=== PATIENT | female | born 1985 | race Caucasian/White ===

== ENCOUNTER 2023-05-22 14:00 | Emergency (ER) | payer OTHER ==
[~2023-05-22] VITALS: Ht 162.6 cm; Wt 104.3 kg
[2023-05-22 17:21] LABS: BASOPHILS ABSOLUTE AUTO 0.04 K/mm3 (0.00-0.23); BASOPHILS PERCENT AUTO 0 % (0-2); EOSINOPHILS PERCENT AUTO 2 % (0-6); Hematocrit 42.2 % (33.0-51.0); Hemoglobin 14.1 g/dL (11.5-16.0); IMMATURE GRAN ABSOLUTE AUTO 0.04 K/mm3 (0.00-0.10); IMMATURE GRAN PERCENT AUTO 0 % (0-1); LYMPHOCYTES ABSOLUTE AUTO 2.23 K/mm3 (0.84-5.20); LYMPHOCYTES PERCENT AUTO 21 % (21-46); MONOCYTES ABSOLUTE AUTO 0.68 K/mm3 (0.16-1.47); MONOCYTES PERCENT AUTO 6 % (4-13); Mean Corpuscular HGB 26.6 pg (26.0-34.0); Mean Corpuscular HGB Conc 33.4 g/dL (31.5-36.5); Mean Corpuscular Volume 80 fL (80-100); Mean Platelet Volume 9.4 fL (9.1-12.4); NEUTROPHILS ABSOLUTE AUTO 7.64 K/mm3 (1.96-9.15); NEUTROPHILS PERCENT AUTO 71 % (41-73); Platelet Count 255 K/mm3 (150-400); RDW Coefficient Variation 13.7 % (11.7-14.2); RDW Standard Deviation 39.7 fL (35.1-46.3); Red Blood Cell Count 5.31 M/mm3 (3.80-5.20); White Blood Cell Count 10.83 K/mm3 (4.00-11.30)
[2023-05-22 17:41] LABS: Albumin, Blood 3.5 g/dL (3.4-5.0); Albumin/Globulin Ratio 0.8 (0.8-1.8); Bilirubin, Total 0.4 mg/dL (0.1-1.0); Bun/Creatinine Ratio 14.4 (12.0-20.0); Calcium, Blood 9.2 mg/dL (8.5-10.1); Creatinine, Blood 0.69 mg/dL (0.40-1.00); Globulin, Blood 4.4 g/dL (2.2-4.0); Potassium, Blood 3.6 mmol/L (3.5-5.5); Total Protein, Blood 7.9 g/dL (6.4-8.2)
[2023-05-22 18:16] VITALS: BP 118/64
[2023-05-22 19:20] LABS: Source, Urine Clean Catch
[2023-05-22 19:26] LABS: Appearance, Urine Hazy (Clear); Bilirubin, Urine Neg (Neg); Blood, Urine 3+ (Neg); Color, Urine Yellow (P-Yellow); Glucose Qualitative, Urine Neg (Neg); Ketones, Urine 1+ (Neg); Leukocyte Esterase, Urine 2+ (Neg); Nitrite, Urine Neg (Neg); Protein, Urine 1+ (Neg); Specific Gravity, Urine 1.025 (1.003-1.022); Urobilinogen, Urine NORM (Normal)
[2023-05-22 19:36] LABS: Bacteria Many /hpf; Squamous Epithelial Cells Many /hpf (Few); White Blood Cells, Urine 25-50 /hpf (0-5)
[2023-05-22 19:38] LABS: Mucus Light (0-Heavy); Transitional Epithelial Cells Rare /hpf (0-Rare)
[2023-05-22] MEDS ORDERED: Acetaminophen 500 MG Tab PO ONE (19:40)
[2023-05-22] MEDS ORDERED: Famotidine 10 MG/ML 2ML Vial IV ONE (19:40)
[2023-05-22] MEDS ORDERED: ONDA4ODT SL (21:09)
[2023-05-22] MEDS ORDERED: RX Prepack 2 Tabs Ondansetron ODT 4MG UD ONE (21:10)
[2023-05-22 23:09] LABS: Adenovirus F 40/41 Not Detected (NOT DETECT); Astrovirus Not Detected (NOT DETECT); Campylobacter Sp Not Detected (NOT DETECT); Cryptosporidium Not Detected (NOT DETECT); Cyclospora Cayetanensis Not Detected (NOT DETECT); E. Coli O157 Not Detected (NOT DETECT); Entamoeba Histolytica Not Detected (NOT DETECT); Enteroaggregative E. coli-EAEC Not Detected (NOT DETECT); Enteropathogenic E. coli-EPEC Not Detected (NOT DETECT); Enterotoxigenic E. coli-ETEC Not Detected (NOT DETECT); Giardia Lamblia Not Detected (NOT DETECT); Norovirus GI/GII Not Detected (NOT DETECT); Plesiomonas Shigelloides Not Detected (NOT DETECT); Rotavirus A Not Detected (NOT DETECT); Salmonella Sp Not Detected (NOT DETECT); Sapovirus Not Detected (NOT DETECT); Shiga Toxin-prod E. coli-STEC Not Detected (NOT DETECT); Shigella/Enteroin E. coli-EIEC Not Detected (NOT DETECT); Vibrio Cholerae Not Detected (NOT DETECT); Vibrio Sp Not Detected (NOT DETECT); Yersinia Enterocolitica Not Detected (NOT DETECT)
== END 2023-05-22 21:19 | disposition home or self-care (01) ==
LOC: ER 14:00
PROVIDERS: Student in an Organized Health Care Education/Training Program
DX: R10.13 Epigastric pain (principal); R19.7 Diarrhea, unspecified; R51.9 Headache, unspecified
CPT/HCPCS: 74018; 80053; 81001; 83690; 84702; 85025; 87077; 87086; 87186; 87507; 96374; 99284-25; A9270

== ENCOUNTER → 2023-08-10 | Outpatient (CLI) | payer OTHER ==
[~2023-08-10] MED LIST: ONDA4ODT SL
[2023-08-10 19:19] LABS: Source, Urine Clean Catch
[2023-08-10 19:59] LABS: Amorphous Light (0-Heavy); Bacteria Mod /hpf; Red Blood Cells, Urine 0-2 /hpf (0-2); Squamous Epithelial Cells Rare /hpf (Few); White Blood Cells, Urine 0-2 /hpf (0-5)
== END ==
LOC: LAB 15:34 → LAB SHORT 15:34
PROVIDERS: Family Medicine
DX: R30.0 Dysuria (principal)
CPT/HCPCS: 81015; 87086

== ENCOUNTER → 2023-12-28 | Outpatient (CLI) | payer OTHER | END | disposition home or self-care (01) | LOC: LAB SHORT 18:11 → LAB 18:11 | DX: N39.0 Urinary tract infection, site not specified (principal) | CPT/HCPCS: 87077; 87086; 87186 ==

== ENCOUNTER 2024-01-21 01:52 | Day surgery (SDC) | payer OTHER ==
[~2024-01-21] VITALS: Wt 116.8 kg
[2024-01-21 14:39] VITALS: BP 159/83
[2024-01-21] MEDS ORDERED: BUPROPION XL150 M1 PO (14:47)
[2024-01-21] MEDS ORDERED: LEFLUNOMIDE20 M2 PO (14:48)
[2024-01-21] MEDS ORDERED: ZOLOFT50 MG PO (14:48)
[2024-01-21] MEDS ORDERED: QVAR REDIHALE10.6 G3 INH (14:49)
[2024-01-21] MEDS ORDERED: Vitamin D1000 UNI1 PO (14:50)
[2024-01-21] MEDS ORDERED: ZYRTEC10 M2 PO (14:50)
[2024-01-21] MEDS ORDERED: DHEA PO (14:50)
[2024-01-21] MEDS ORDERED: ELLURA200 MG PO (14:51)
[2024-01-21] MEDS ORDERED: Vitamin B-12100 MCG PO (14:51)
[2024-01-21] MEDS ORDERED: EVENING PRIMR1300 MG PO (14:51)
[2024-01-21] MEDS ORDERED: Milk Thistle175 M1 PO (14:51)
[2024-01-21] MEDS ORDERED: L-Lysine500 M1 PO (14:52)
[2024-01-21] MEDS ORDERED: Infliximab-DYYB 600 MG in NS 250 ML IV SCH (15:25)
[2024-01-21 16:08] VITALS: BP 149/83
[2024-01-21 16:51] VITALS: BP 135/84
== END 2024-01-21 18:07 | disposition home or self-care (01) ==
LOC: ATC 01:52
DX: L40.59 Other psoriatic arthropathy (principal)
CPT/HCPCS: 96413; 96415; J7050; Q5103

== ENCOUNTER 2024-01-29 15:49 | Emergency (ER) | payer OTHER ==
[~2024-01-29] VITALS: Ht 162.6 cm; Wt 117.9 kg
[~2024-01-29 15:49] MED LIST changes: +BUPROPION XL150 M1 PO; +DHEA PO; +ELLURA200 MG PO; +EVENING PRIMR1300 MG PO; +L-Lysine500 M1 PO; +LEFLUNOMIDE20 M2 PO; +Milk Thistle175 M1 PO; +QVAR REDIHALE10.6 G3 INH; +Vitamin B-12100 MCG PO; +Vitamin D1000 UNI1 PO; +ZOLOFT50 MG PO; +ZYRTEC10 M2 PO
[2024-01-29 17:16] LABS: BASOPHILS ABSOLUTE AUTO 0.05 K/mm3 (0.00-0.23); BASOPHILS PERCENT AUTO 0 % (0-2); EOSINOPHILS ABSOLUTE AUTO 0.26 K/mm3 (0.00-0.68); EOSINOPHILS PERCENT AUTO 2 % (0-6); Hematocrit 43.9 % (33.0-51.0); Hemoglobin 14.3 g/dL (11.5-16.0); IMMATURE GRAN ABSOLUTE AUTO 0.06 K/mm3 (0.00-0.10); IMMATURE GRAN PERCENT AUTO 1 % (0-1); LYMPHOCYTES ABSOLUTE AUTO 1.11 K/mm3 (0.84-5.20); LYMPHOCYTES PERCENT AUTO 9 % (21-46); MONOCYTES ABSOLUTE AUTO 0.98 K/mm3 (0.16-1.47); MONOCYTES PERCENT AUTO 8 % (4-13); Mean Corpuscular HGB Conc 32.6 g/dL (31.5-36.5); Mean Corpuscular Volume 83 fL (80-100); Mean Platelet Volume 10.4 fL (9.1-12.4); NEUTROPHILS ABSOLUTE AUTO 10.46 K/mm3 (1.96-9.15); NEUTROPHILS PERCENT AUTO 81 % (41-73); Platelet Count 202 K/mm3 (150-400); RDW Coefficient Variation 13.2 % (11.7-14.2); RDW Standard Deviation 39.5 fL (35.1-46.3); Red Blood Cell Count 5.29 M/mm3 (3.80-5.20); White Blood Cell Count 12.92 K/mm3 (4.00-11.30)
[2024-01-29 17:29] LABS: C-REACTIVE PROTEIN, EXT RANGE 7.03 mg/dL (0.000-0.300); Magnesium, Blood 1.8 mg/dL (1.6-2.4)
[2024-01-29 17:35] LABS: Albumin, Blood 3.4 g/dL (3.4-5.0); Albumin/Globulin Ratio 0.8 (0.8-1.8); Bilirubin, Total 0.5 mg/dL (0.1-1.0); Bun/Creatinine Ratio 15.7 (12.0-20.0); Creatinine, Blood 0.89 mg/dL (0.40-1.00); Globulin, Blood 4.4 g/dL (2.2-4.0); Potassium, Blood 3.7 mmol/L (3.5-5.5); Total Protein, Blood 7.8 g/dL (6.4-8.2)
[2024-01-29] MEDS ORDERED: FentaNYL Citrate 50 MCG/ML 2 ML Injection IV ONE (22:35)
[2024-01-29] MEDS ORDERED: Dexamethasone Sod Phos 10 MG/ML 1ML VIAL IV ONE (22:35)
[2024-01-29] MEDS ORDERED: Acetaminophen 500 MG Tab PO ONE (22:35)
[2024-01-29] MEDS ORDERED: NS 1,000 ML IV SCH (22:35)
[2024-01-29] MEDS ORDERED: Prochlorperazine Edisylate 10 mg Vial IV ONE (22:35)
[2024-01-29] MEDS ORDERED: DiphenhydrAMINE HCl 50 MG/ML 1ML Vial IV ONE (22:35)
[2024-01-29 23:03] VITALS: BP 143/89
[2024-01-30] MEDS ORDERED: ACET500 PO (00:33)
[2024-01-30] MEDS ORDERED: IBUP600 PO (00:33)
[2024-01-30 01:18] LABS: Adenovirus Not Detected (NOT DETECT); Bordetella pertussis Not Detected (NOT DETECT); Chlamydophila pneumoniae Not Detected (NOT DETECT); Coronavirus 229E Not Detected (NOT DETECT); Coronavirus HKU1 Not Detected (NOT DETECT); Coronavirus NL63 Not Detected (NOT DETECT); Coronavirus OC43 Not Detected (NOT DETECT); Human Metapneumovirus Not Detected (NOT DETECT); Human Rhinovirus/Enterovirus Not Detected (NOT DETECT); Influenza A/2009-H1 Not Detected (NOT DETECT); Influenza A/H1 Not Detected (NOT DETECT); Influenza A/H3 Not Detected (NOT DETECT); Influenza B Not Detected (NOT DETECT); Mycoplasma pneumoniae Not Detected (NOT DETECT); Parainfluenza Virus 1 Not Detected (NOT DETECT); Parainfluenza Virus 2 Not Detected (NOT DETECT); Parainfluenza Virus 3 Not Detected (NOT DETECT); Parainfluenza Virus 4 Not Detected (NOT DETECT); Respiratory Syncytial Virus Not Detected (NOT DETECT); SARS-Cov-2 (COVID-19), BioFire Not Detected (NOT DETECT)
[2024-01-30] MEDS ORDERED: ASPI81CH PO (12:37)
[2024-01-30] MEDS ORDERED: VITAMIN D310 MC5 (12:37)
[2024-01-30] MEDS ORDERED: [UNRECOGNIZED DRUG - OTHER] (12:37)
== END 2024-01-30 00:38 | disposition left against medical advice (07) ==
LOC: ER 15:49
PROVIDERS: Physician Assistant; Student in an Organized Health Care Education/Training Program
DX: N39.0 Urinary tract infection, site not specified (principal); R51.9 Headache, unspecified; M54.2 Cervicalgia; M26.629 Arthralgia of temporomandibular joint, unspecified side; Z79.899 Other long term (current) drug therapy; Z88.2 Allergy status to sulfonamides; Z88.8 Allergy status to other drugs, medicaments and biological substances
CPT/HCPCS: 0202U; 70450; 80053; 83735; 84703; 85025; 86140; 96374; 96375; 99284-25; A9270; J0780; J1100; J1200; J3010; J7030

== ENCOUNTER 2024-01-30 11:34 | Emergency (ER) | payer OTHER ==
[~2024-01-30] VITALS: Ht 162.6 cm; Wt 117.9 kg
[~2024-01-30 11:34] MED LIST changes: +ACET500 PO; +IBUP600 PO
[2024-01-30] MEDS ORDERED: VITAMIN D310 MC5 (12:37)
[2024-01-30] MEDS ORDERED: [UNRECOGNIZED DRUG - OTHER] (12:37)
[2024-01-30] MEDS ORDERED: ASPI81CH PO (12:37)
[2024-01-30 15:45] VITALS: BP 139/85
== END 2024-01-30 15:45 | disposition home or self-care (01) ==
LOC: ER 11:34
DX: R51.9 Headache, unspecified (principal); R68.84 Jaw pain; M25.531 Pain in right wrist; Z88.2 Allergy status to sulfonamides; Z88.8 Allergy status to other drugs, medicaments and biological substances; Z79.899 Other long term (current) drug therapy
CPT/HCPCS: 70553; 99283-25; A9579

== ENCOUNTER 2024-02-04 03:13 | Day surgery (SDC) | payer OTHER ==
[~2024-02-04] VITALS: Wt 115.5 kg
[~2024-02-04 03:13] MED LIST changes: +ASPI81CH PO; +VITAMIN D310 MC5; +[UNRECOGNIZED DRUG - OTHER]
[2024-02-04 14:22] VITALS: BP 125/72
[2024-02-04] MEDS ORDERED: Infliximab-DYYB 600 MG in NS 250 ML IV SCH (14:30)
[2024-02-04 16:21] VITALS: BP 124/101
[2024-02-04 16:27] VITALS: BP 74/45
[2024-02-04] MEDS ORDERED: DiphenhydrAMINE HCl 50 MG/ML 1ML Vial ONE (16:27)
[2024-02-04] MEDS ORDERED: MethylPREDNISolone Sod Succ 40 MG VIAL ONE (16:31)
[2024-02-04 16:37] VITALS: BP 117/70
[2024-02-04 17:00] VITALS: BP 88/67
[2024-02-04 17:16] VITALS: BP 112/76
[2024-02-04] MEDS ORDERED: MethylPREDNISolone Sod Succ 40 MG VIAL IV SCH (17:25)
[2024-02-04] MEDS ORDERED: DiphenhydrAMINE HCl 50 MG/ML 1ML Vial IV SCH (17:25)
--- NOTE | 2024-02-04 17:50 | NUR ---
MEDICATION REACTION AT 1620. PATIENT CALLED AND REPORTED THAT HER MID BACK WAS 6/10 PAIN, SHE WAS HAVING CHEST TIGHTNESS, HER THROAT WAS SCRATCHY. SHE WAS EXPERIENCING NAUSEA. VSS AT THAT TIME. MEDICATION STOPPED IMMEDIATELY. ANOTHER RN STAYED WITH PATIENT WHILE THIS RN CALLED THE ORDERING PROVIDER FOR MEDICATION REACTION ORDERS. WITHIN 3 MINUTES THE OTHER RN WITH THE PATIENT REPORTED HER SYMPTOMS WERE WORSE, BP 74/45. ASSISTANT PROFESSOR OF CRIMINAL JUSTICE CALLED. IV BENADRYL AND SOLUMEDROL GIVEN AND PATIENT IMPROVED. SEE EMR AND JUN. KEPT PATIENT FOR MONITORING WITH Q15 MIN VITALS. VITALS REMAINED STABLE BUT PATIENT CONTINUES TO REPORT WORSENING BACK PAIN, CHEST TIGHTNESS, SOB. PATIENT TAKEN UP TO THE ER AND REPORT GIVEN TO CHARGE NURSE. PATIENT TO CALL [facility] OFFICE ON THURSDAY TO SEE HIM NIKIA TO DEVELOP NEW PLAN FOR INFUSION MOVING FORWARD
[2024-02-04] MEDS ORDERED: EPIPEN0.3 MG/0.1 IM (18:58)
[2024-02-04] MEDS ORDERED: BENADRYL25 M1 PO (18:58)
[2024-02-04] MEDS ORDERED: PRED20 PO (18:58)
[2024-02-04] MEDS ORDERED: FAMO20 PO (18:58)
== END 2024-02-04 17:35 | disposition home or self-care (01) ==
LOC: ATC 03:13
DX: L40.59 Other psoriatic arthropathy (principal); Z88.2 Allergy status to sulfonamides; Z79.899 Other long term (current) drug therapy
CPT/HCPCS: 96413; J1200; J2919; J7050; Q5103

== ENCOUNTER 2024-02-04 17:35 | Emergency (ER) | payer OTHER ==
[~2024-02-04] VITALS: Ht 162.6 cm; Wt 115.2 kg
[2024-02-04 18:45] VITALS: BP 120/70
[2024-02-04] MEDS ORDERED: Famotidine 20 MG Tab PO ONE (18:55)
[2024-02-04] MEDS ORDERED: FAMO20 PO (18:58)
[2024-02-04] MEDS ORDERED: PRED20 PO (18:58)
[2024-02-04] MEDS ORDERED: EPIPEN0.3 MG/0.1 IM (18:58)
[2024-02-04] MEDS ORDERED: BENADRYL25 M1 PO (18:58)
== END 2024-02-04 19:14 | disposition home or self-care (01) ==
LOC: ER 17:35
DX: R06.02 Shortness of breath (principal); T39.8X5A Adverse effect of other nonopioid analgesics and antipyretics, not elsewhere classified, initial encounter; L40.50 Arthropathic psoriasis, unspecified; Z88.2 Allergy status to sulfonamides; Z88.8 Allergy status to other drugs, medicaments and biological substances; Z79.899 Other long term (current) drug therapy
CPT/HCPCS: 99284; A9270

== ENCOUNTER → 2024-03-25 | Outpatient (CLI) | payer OTHER ==
[~2024-03-25] MED LIST changes: +BENADRYL25 M1 PO; +EPIPEN0.3 MG/0.1 IM; +FAMO20 PO; +PRED20 PO
[2024-03-25 16:10] LABS: Bacterial Vaginosis PCR Negative (NEGATIVE); Candida Group, PCR NOT DETECTED (NOT DETECT); Candida glabrata-krusei, PCR NOT DETECTED (NOT DETECT)
== END ==
LOC: LAB 12:23 → LAB SHORT 12:23
PROVIDERS: Student in an Organized Health Care Education/Training Program
DX: N36.8 Other specified disorders of urethra (principal); R30.0 Dysuria
CPT/HCPCS: 87077; 87086; 87186; 87481; 87661; 87801

== ENCOUNTER 2024-05-26 18:32 | Emergency (ER) | payer OTHER ==
[~2024-05-26] VITALS: Ht 162.6 cm; Wt 120.2 kg
[~2024-05-26 18:32] MED LIST changes: -CEPH500 PO
[2024-05-26 19:18] LABS: Source, Urine Clean Catch
[2024-05-26 19:29] LABS: Bilirubin, Urine Neg (Neg); Blood, Urine 5+ (Neg); Glucose Qualitative, Urine Neg (Neg); Ketones, Urine Neg (Neg); Leukocyte Esterase, Urine 2+ (Neg); Nitrite, Urine Neg (Neg); Protein, Urine 3+ (Neg); Specific Gravity, Urine 1.015 (1.003-1.022); Urobilinogen, Urine NORM (Normal)
[2024-05-26 19:45] LABS: Appearance, Urine Bloody (Clear); Color, Urine Red (P-Yellow)
[2024-05-26 19:46] LABS: Bacteria Mod /hpf; Red Blood Cells, Urine TNTC /hpf (0-2); Squamous Epithelial Cells Few /hpf (Few)
[2024-05-26 19:46] LABS: BASOPHILS ABSOLUTE AUTO 0.08 K/mm3 (0.00-0.23); BASOPHILS PERCENT AUTO 1 % (0-2); EOSINOPHILS ABSOLUTE AUTO 0.42 K/mm3 (0.00-0.68); EOSINOPHILS PERCENT AUTO 3 % (0-6); Hemoglobin 14.2 g/dL (11.5-16.0); IMMATURE GRAN ABSOLUTE AUTO 0.06 K/mm3 (0.00-0.10); IMMATURE GRAN PERCENT AUTO 1 % (0-1); LYMPHOCYTES ABSOLUTE AUTO 3.38 K/mm3 (0.84-5.20); LYMPHOCYTES PERCENT AUTO 27 % (21-46); MONOCYTES ABSOLUTE AUTO 0.93 K/mm3 (0.16-1.47); MONOCYTES PERCENT AUTO 7 % (4-13); Mean Corpuscular HGB Conc 34.6 g/dL (31.5-36.5); Mean Corpuscular Volume 81 fL (80-100); Mean Platelet Volume 9.4 fL (9.1-12.4); NEUTROPHILS ABSOLUTE AUTO 7.69 K/mm3 (1.96-9.15); NEUTROPHILS PERCENT AUTO 61 % (41-73); Platelet Count 215 K/mm3 (150-400); RDW Coefficient Variation 13.2 % (11.7-14.2); RDW Standard Deviation 38.2 fL (35.1-46.3); Red Blood Cell Count 5.07 M/mm3 (3.80-5.20); White Blood Cell Count 12.56 K/mm3 (4.00-11.30)
[2024-05-26 20:05] LABS: Albumin, Blood 3.5 g/dL (3.4-5.0); Albumin/Globulin Ratio 0.8 (0.8-1.8); Bilirubin, Total 0.4 mg/dL (0.1-1.0); Bun/Creatinine Ratio 20.8 (12.0-20.0); Calcium, Blood 9.2 mg/dL (8.5-10.1); Creatinine, Blood 0.58 mg/dL (0.40-1.00); Globulin, Blood 4.3 g/dL (2.2-4.0); Potassium, Blood 3.8 mmol/L (3.5-5.5); Total Protein, Blood 7.8 g/dL (6.4-8.2)
[2024-05-26] MEDS ORDERED: Cephalexin Monohydrate 500 MG Cap PO ONE (23:40)
[2024-05-27] MEDS ORDERED: CEPH500 PO (00:16)
[2024-05-27 00:27] VITALS: BP 119/102
== END 2024-05-27 00:26 | disposition home or self-care (01) ==
LOC: ER 18:32
PROVIDERS: Physician Assistant
DX: O23.11 Infections of bladder in pregnancy, first trimester (principal); R31.9 Hematuria, unspecified; N30.91 Cystitis, unspecified with hematuria; R30.0 Dysuria; Z3A.01 Less than 8 weeks gestation of pregnancy; N36.8 Other specified disorders of urethra; Z79.899 Other long term (current) drug therapy; Z88.2 Allergy status to sulfonamides; Z88.8 Allergy status to other drugs, medicaments and biological substances
CPT/HCPCS: 76770; 76801; 76817; 80053; 81001; 84702; 85025; 87077; 87086; 87186; 87481; 87661; 87801; 99284-25; A9270

== ENCOUNTER → 2024-05-26 | Outpatient (CLI) | payer OTHER ==
[~2024-05-26] MED LIST changes: +CEPH500 PO
[2024-05-26 18:09] LABS: Source, Urine Clean Catch
[2024-05-26 18:17] LABS: Appearance, Urine Bloody (Clear)
[2024-05-26 18:24] LABS: Bilirubin, Urine Neg (Neg); Blood, Urine 2+ (Neg); Glucose Qualitative, Urine Neg (Normal); Ketones, Urine Neg (Neg); Leukocyte Esterase, Urine 2+ (Neg); Nitrite, Urine Neg (Neg); Protein, Urine 3+ (Neg); Urobilinogen, Urine NORM (Normal)
[2024-05-26 18:26] LABS: Color, Urine Red (P-Yellow); Red Blood Cells, Urine TNTC /hpf (0-2)
[2024-05-26 18:27] LABS: Bacteria Few /hpf; Squamous Epithelial Cells Not Seen /hpf (Few)
== END ==
LOC: LAB SHORT 18:07
PROVIDERS: Physician Assistant
DX: R31.9 Hematuria, unspecified (principal)
CPT/HCPCS: 81001

== ENCOUNTER → 2024-07-01 | Outpatient (CLI) | payer OTHER ==
[~2024-07-01] MED LIST changes: +CEPH500 PO
[2024-07-01 19:23] LABS: BASOPHILS ABSOLUTE AUTO 0.05 K/mm3 (0.00-0.23); BASOPHILS PERCENT AUTO 0 % (0-2); EOSINOPHILS ABSOLUTE AUTO 0.31 K/mm3 (0.00-0.68); EOSINOPHILS PERCENT AUTO 3 % (0-6); Hematocrit 39.7 % (33.0-51.0); Hemoglobin 13.6 g/dL (11.5-16.0); IMMATURE GRAN ABSOLUTE AUTO 0.07 K/mm3 (0.00-0.10); IMMATURE GRAN PERCENT AUTO 1 % (0-1); LYMPHOCYTES ABSOLUTE AUTO 2.19 K/mm3 (0.84-5.20); LYMPHOCYTES PERCENT AUTO 19 % (21-46); MONOCYTES ABSOLUTE AUTO 0.77 K/mm3 (0.16-1.47); MONOCYTES PERCENT AUTO 7 % (4-13); Mean Corpuscular HGB 27.8 pg (26.0-34.0); Mean Corpuscular HGB Conc 34.3 g/dL (31.5-36.5); Mean Corpuscular Volume 81 fL (80-100); Mean Platelet Volume 10.4 fL (9.1-12.4); NEUTROPHILS ABSOLUTE AUTO 8.11 K/mm3 (1.96-9.15); NEUTROPHILS PERCENT AUTO 71 % (41-73); Platelet Count 256 K/mm3 (150-400); RDW Coefficient Variation 13.1 % (11.7-14.2); RDW Standard Deviation 38.1 fL (35.1-46.3)
[2024-07-04 08:12] LABS: HEPATITIS B SURFACE ANTIGEN Negative (Negative)
[2024-07-04 11:36] LABS: HEPATITIS C AB CIA INTERP Negative (Negative); HEPATITIS C ANTIBODY CIA INDEX 0.15 IV
[2024-07-04 12:01] LABS: HIV 1,2 COMBO ANTIGEN/ANTIBODY Negative (Negative)
== END | disposition home or self-care (01) ==
LOC: LAB 16:30 → LAB SHORT 16:30
PROVIDERS: Advanced Practice Midwife
DX: Z34.91 Encounter for supervision of normal pregnancy, unspecified, first trimester (principal)
CPT/HCPCS: 81001; 84443; 85025; 86592; 86762; 86803; 87340; 87389

== ENCOUNTER → 2024-07-01 | Outpatient (CLI) | payer OTHER ==
[2024-07-01 18:53] LABS: Source, Urine Clean Catch
[2024-07-01 19:26] LABS: Appearance, Urine Hazy (Clear); Bilirubin, Urine Neg (Neg); Blood, Urine 5+ (Neg); Color, Urine Yellow (P-Yellow); Glucose Qualitative, Urine Neg (Neg); Ketones, Urine Neg (Neg); Leukocyte Esterase, Urine 3+ (Neg); Nitrite, Urine Neg (Neg); Protein, Urine 2+ (Neg); Urobilinogen, Urine NORM (Normal)
[2024-07-01 19:47] LABS: Hyaline Casts 0-2 /lpf (0-2); Mucus Light (0-Heavy); Red Blood Cells, Urine 0-2 /hpf (0-2); White Blood Cells, Urine 0-2 /hpf (0-5)
[2024-07-01 19:48] LABS: Bacteria Mod /hpf; Squamous Epithelial Cells Rare /hpf (Few)
== END | disposition home or self-care (01) ==
LOC: LAB 18:50 → LAB SHORT 18:50
PROVIDERS: Advanced Practice Midwife
DX: Z34.91 Encounter for supervision of normal pregnancy, unspecified, first trimester (principal)
CPT/HCPCS: 81001

== ENCOUNTER → 2024-08-01 | Outpatient (CLI) | payer OTHER ==
[2024-08-01 19:46] LABS: Source, Urine Clean Catch
[2024-08-01 19:54] LABS: Appearance, Urine Hazy (Clear); Bilirubin, Urine Neg (Neg); Blood, Urine 4+ (Neg); Color, Urine Yellow (P-Yellow); Glucose Qualitative, Urine Neg (Neg); Ketones, Urine Neg (Neg); Leukocyte Esterase, Urine 3+ (Neg); Nitrite, Urine Neg (Neg); Protein, Urine 2+ (Neg); Specific Gravity, Urine 1.025 (1.003-1.022); Urobilinogen, Urine NORM (Normal)
[2024-08-01 20:08] LABS: Bacteria Many /hpf; Calcium Oxalate Crystals Rare /hpf; Squamous Epithelial Cells Few /hpf (Few)
== END ==
LOC: LAB SHORT 19:43 → LAB 19:43
PROVIDERS: Advanced Practice Midwife
DX: Z34.82 Encounter for supervision of other normal pregnancy, second trimester (principal)
CPT/HCPCS: 81001; 87077; 87086; 87186

== ENCOUNTER 2024-08-12 11:52 | Day surgery (SDC) | payer OTHER ==
[2024-08-12] MEDS ORDERED: CefTRIAXone Sodium 1,000 MG in NS 100 ML IV SCH (12:35)
[2024-08-12 16:05] VITALS: BP 143/80
[2024-08-12] MEDS ORDERED: PRENATAL TABLE1 EAC2 PO (16:16)
[2024-08-12] MEDS ORDERED: ASPIR 8181 M1 PO (16:16)
[2024-08-12] MEDS ORDERED: DHEA25 MG PO (16:17)
[2024-08-12] MEDS ORDERED: FISH OIL 1,0001 EA10 PO (16:17)
[2024-08-12] MEDS ORDERED: PROBIOTIC1 EA15 PO (16:18)
[2024-08-12] MEDS ORDERED: IRON FOLATE PL1 EACH PO (16:18)
== END 2024-08-12 16:38 | disposition home or self-care (01) ==
LOC: ATC 11:52
DX: O26.832 Pregnancy related renal disease, second trimester (principal); N12 Tubulo-interstitial nephritis, not specified as acute or chronic; O98.912 Unspecified maternal infectious and parasitic disease complicating pregnancy, second trimester; A49.8 Other bacterial infections of unspecified site; O99.512 Diseases of the respiratory system complicating pregnancy, second trimester; J45.20 Mild intermittent asthma, uncomplicated; O09.522 Supervision of elderly multigravida, second trimester; Z3A.00 Weeks of gestation of pregnancy not specified; Z88.2 Allergy status to sulfonamides; Z79.899 Other long term (current) drug therapy
CPT/HCPCS: 96365; J0696

== ENCOUNTER 2024-08-13 02:57 | Day surgery (SDC) | payer OTHER ==
[~2024-08-13 02:57] MED LIST changes: +ASPIR 8181 M1 PO; +DHEA25 MG PO; +FISH OIL 1,0001 EA10 PO; +IRON FOLATE PL1 EACH PO; +PRENATAL TABLE1 EAC2 PO; +PROBIOTIC1 EA15 PO
[2024-08-13] MEDS ORDERED: CefTRIAXone Sodium 1,000 MG in NS 100 ML IV SCH (07:00)
[2024-08-13 14:09] VITALS: BP 129/64
== END 2024-08-13 23:00 | disposition home or self-care (01) ==
LOC: ATC 02:57
DX: O26.839 Pregnancy related renal disease, unspecified trimester (principal); N12 Tubulo-interstitial nephritis, not specified as acute or chronic; O98.919 Unspecified maternal infectious and parasitic disease complicating pregnancy, unspecified trimester; A49.8 Other bacterial infections of unspecified site; Z3A.00 Weeks of gestation of pregnancy not specified; O09.529 Supervision of elderly multigravida, unspecified trimester; O99.619 Diseases of the digestive system complicating pregnancy, unspecified trimester; K21.9 Gastro-esophageal reflux disease without esophagitis; O99.519 Diseases of the respiratory system complicating pregnancy, unspecified trimester; O16.9 Unspecified maternal hypertension, unspecified trimester; J45.50 Severe persistent asthma, uncomplicated; Z88.2 Allergy status to sulfonamides; Z79.899 Other long term (current) drug therapy
CPT/HCPCS: 96365; J0696

== ENCOUNTER → 2024-08-29 | Outpatient (CLI) | payer OTHER ==
[~2024-08-29] MED LIST changes: +CEFD300 PO; +SERTRALINE HCL150 M1 PO
[2024-08-30 12:21] LABS: Chlamydia Trachomatis Urine NOT DETECTED (NOT DETECT); Neisseria Gonorrhoea Urine NOT DETECTED (NOT DETECT)
== END ==
LOC: LAB 19:20 → LAB SHORT 19:20
PROVIDERS: Advanced Practice Midwife
DX: Z11.3 Encounter for screening for infections with a predominantly sexual mode of transmission (principal)
CPT/HCPCS: 87491; 87591

== ENCOUNTER 2024-08-30 09:01 | Emergency (ER) | payer OTHER ==
[~2024-08-30] VITALS: Ht 162.6 cm; Wt 120.7 kg
[2024-08-30] MEDS ORDERED: Tetanus,Diphtheria Toxd Ped/Pf 0.5 ML VIAL IM ONE (10:05)
[2024-08-30] MEDS ORDERED: Diphth,Pertuss(Acell),Tet Vac 0.5 ML VIAL IM ONE (10:10)
== END 2024-08-30 10:24 | disposition home or self-care (01) ==
LOC: ER 09:01
DX: O9A.212 Injury, poisoning and certain other consequences of external causes complicating pregnancy, second trimester (principal); S81.812A Laceration without foreign body, left lower leg, initial encounter; W18.09XA Striking against other object with subsequent fall, initial encounter; Z3A.20 20 weeks gestation of pregnancy; Z88.2 Allergy status to sulfonamides; Z79.82 Long term (current) use of aspirin
CPT/HCPCS: 12001; 90471; 90702; 90715; 99282-25

== ENCOUNTER 2024-09-21 09:35 | Emergency (ER) | payer OTHER ==
[~2024-09-21] VITALS: Ht 162.6 cm; Wt 121.6 kg
[2024-09-21 09:44] VITALS: BP 139/82
== END 2024-09-21 09:49 | disposition home or self-care (01) ==
LOC: ER 09:35
DX: Z48.02 Encounter for removal of sutures (principal); Z79.899 Other long term (current) drug therapy
CPT/HCPCS: 99281

== ENCOUNTER 2024-10-29 01:21 | Day surgery (SDC) | payer OTHER ==
[2024-10-29] MEDS ORDERED: CefTRIAXone Sodium 2,000 MG in NS 100 ML IV SCH (06:00)
[2024-10-29 15:48] VITALS: BP 150/72
[2024-10-29] MEDS ORDERED: AMOCLA500 PO (17:13)
== END 2024-10-29 16:34 | disposition home or self-care (01) ==
LOC: ATC 01:21
DX: O23.40 Unspecified infection of urinary tract in pregnancy, unspecified trimester (principal); O09.529 Supervision of elderly multigravida, unspecified trimester; Z3A.00 Weeks of gestation of pregnancy not specified; Z87.891 Personal history of nicotine dependence; Z79.2 Long term (current) use of antibiotics; Z79.82 Long term (current) use of aspirin; Z79.899 Other long term (current) drug therapy; Z88.2 Allergy status to sulfonamides
CPT/HCPCS: 96365; J0696

== ENCOUNTER 2024-10-30 00:51 | Day surgery (SDC) | payer OTHER ==
[~2024-10-30 00:51] MED LIST changes: +AMOCLA500 PO
[2024-10-30] MEDS ORDERED: CefTRIAXone Sodium 2,000 MG in NS 100 ML IV SCH (01:00)
[2024-10-30 14:46] VITALS: BP 114/70
== END 2024-10-30 15:37 | disposition home or self-care (01) ==
LOC: ATC 00:51
DX: O23.40 Unspecified infection of urinary tract in pregnancy, unspecified trimester (principal); O09.529 Supervision of elderly multigravida, unspecified trimester; Z3A.00 Weeks of gestation of pregnancy not specified; Z87.891 Personal history of nicotine dependence; Z79.2 Long term (current) use of antibiotics; Z79.82 Long term (current) use of aspirin; Z79.899 Other long term (current) drug therapy; Z88.2 Allergy status to sulfonamides
CPT/HCPCS: 96365; J0696

== ENCOUNTER 2025-01-01 14:00 | Observation (INO) | payer OTHER ==
[~2025-01-01] VITALS: Ht 165.1 cm; Wt 130.0 kg
[2025-01-01] MEDS ORDERED: FentaNYL Citrate 50 MCG/ML 2 ML Injection IV PRN (14:05)
[2025-01-01] MEDS ORDERED: CefTRIAXone Sodium 1,000 MG in NS 100 ML IV SCH (14:10)
[2025-01-01 14:15] LABS: Source, Urine Clean Catch
[2025-01-01 14:32] LABS: BASOPHILS ABSOLUTE AUTO 0.03 K/mm3 (0.00-0.23); BASOPHILS PERCENT AUTO 0 % (0-2); EOSINOPHILS ABSOLUTE AUTO 0.20 K/mm3 (0.00-0.68); EOSINOPHILS PERCENT AUTO 2 % (0-6); Hematocrit 34.3 % (33.0-51.0); Hemoglobin 12.0 g/dL (11.5-16.0); IMMATURE GRAN ABSOLUTE AUTO 0.12 K/mm3 (0.00-0.10); IMMATURE GRAN PERCENT AUTO 1 % (0-1); LYMPHOCYTES ABSOLUTE AUTO 1.51 K/mm3 (0.84-5.20); LYMPHOCYTES PERCENT AUTO 12 % (21-46); MONOCYTES ABSOLUTE AUTO 0.87 K/mm3 (0.16-1.47); MONOCYTES PERCENT AUTO 7 % (4-13); Mean Corpuscular HGB Conc 35.0 g/dL (31.5-36.5); Mean Corpuscular Volume 82 fL (80-100); NEUTROPHILS ABSOLUTE AUTO 9.56 K/mm3 (1.96-9.15); NEUTROPHILS PERCENT AUTO 78 % (41-73); NRBC ABSOLUTE 0.00 K/mm3 (0.00-0.02); NRBC Auto 0.0 /100 WBC (0.0-0.2); Platelet Count 195 K/mm3 (150-400); RDW Coefficient Variation 14.1 % (11.7-14.2); RDW Standard Deviation 41.4 fL (35.1-46.3)
[2025-01-01] MEDS ORDERED: NS 1,000 ML BAG IR ONE (14:35)
[2025-01-01 14:38] LABS: Bilirubin, Urine Neg (Neg); Color, Urine Red (P-Yellow); Glucose Qualitative, Urine Neg (Neg); Ketones, Urine Neg (Neg); Leukocyte Esterase, Urine 3+ (Neg); Protein, Urine 2+ (Neg); Specific Gravity, Urine 1.010 (1.003-1.022); Urobilinogen, Urine NORM (Normal)
[2025-01-01 14:41] LABS: Red Blood Cells, Urine TNTC /hpf (0-2)
[2025-01-01 14:43] LABS: White Blood Cells, Urine 50-100 /hpf (0-5)
[2025-01-01 14:47] VITALS: BP 134/72
[2025-01-01 14:50] LABS: Alanine Aminotransfer (ALT/SGP 10.0 U/L (12-78); Albumin, Blood 2.6 g/dL (3.4-5.0); Albumin/Globulin Ratio 0.6 (0.8-1.8); Anion Gap 9.0 mmol/L (3-11); Aspartate Aminotrans (AST/SGOT 13.0 U/L (12-37); Bilirubin, Total 0.3 mg/dL (0.1-1.0); Blood Urea Nitrogen 12.0 mg/dL (8-24); CO2, Blood 23.0 mmol/L (21-32); Calcium, Blood 9.0 mg/dL (8.5-10.1); Chloride, Blood 107.0 mmol/L (98-108); Creatinine, Blood 0.69 mg/dL (0.40-1.00); Globulin, Blood 4.3 g/dL (2.2-4.0); Glucose, Blood 92.0 mg/dL (70-99); Potassium, Blood 4.1 mmol/L (3.5-5.5); Sodium, Blood 135.0 mmol/L (136-145); Total Protein, Blood 6.9 g/dL (6.4-8.2)
[2025-01-01] MEDS ORDERED: Ondansetron HCl 2 MG / ML 2ML Vial IV PRN (16:40)
[2025-01-01 19:13] VITALS: BP 112/59
[2025-01-01 22:54] VITALS: BP 134/63
[2025-01-02 04:49] VITALS: BP 134/67
[2025-01-02 07:17] VITALS: BP 111/58
== END 2025-01-02 10:00 | disposition home or self-care (01) ==
LOC: BC 14:00 → OBS 14:00 → BC 16:37
PROVIDERS: ADMIT Family Medicine
DX: O99.891 Other specified diseases and conditions complicating pregnancy (principal); N13.2 Hydronephrosis with renal and ureteral calculous obstruction; R82.79 Other abnormal findings on microbiological examination of urine; Z3A.38 38 weeks gestation of pregnancy
CPT/HCPCS: 36415; 59025; 76770; 80053; 81001; 85025; 87086; 96361; 96374; 96375; 96376; 99214; A9270; J0696; J3010; J7120

== ENCOUNTER 2025-01-09 13:03 | Inpatient (IN) | payer OTHER ==
[2025-01-06 15:25] LABS: BASOPHILS ABSOLUTE AUTO 0.05 K/mm3 (0.00-0.23); BASOPHILS PERCENT AUTO 1 % (0-2); EOSINOPHILS ABSOLUTE AUTO 0.16 K/mm3 (0.00-0.68); EOSINOPHILS PERCENT AUTO 2 % (0-6); Hematocrit 33.0 % (33.0-51.0); Hemoglobin 11.2 g/dL (11.5-16.0); IMMATURE GRAN ABSOLUTE AUTO 0.12 K/mm3 (0.00-0.10); IMMATURE GRAN PERCENT AUTO 1 % (0-1); LYMPHOCYTES ABSOLUTE AUTO 1.64 K/mm3 (0.84-5.20); LYMPHOCYTES PERCENT AUTO 17 % (21-46); MONOCYTES ABSOLUTE AUTO 0.63 K/mm3 (0.16-1.47); MONOCYTES PERCENT AUTO 6 % (4-13); Mean Corpuscular HGB Conc 33.9 g/dL (31.5-36.5); Mean Corpuscular Volume 82 fL (80-100); NEUTROPHILS ABSOLUTE AUTO 7.34 K/mm3 (1.96-9.15); NEUTROPHILS PERCENT AUTO 74 % (41-73); NRBC ABSOLUTE 0.00 K/mm3 (0.00-0.02); NRBC Auto 0.0 /100 WBC (0.0-0.2); Platelet Count 201 K/mm3 (150-400); RDW Coefficient Variation 14.1 % (11.7-14.2); RDW Standard Deviation 41.6 fL (35.1-46.3)
[2025-01-06 16:15] LABS: Alanine Aminotransfer (ALT/SGP 10.0 U/L (12-78); Albumin, Blood 2.6 g/dL (3.4-5.0); Albumin/Globulin Ratio 0.6 (0.8-1.8); Anion Gap 10.0 mmol/L (3-11); Aspartate Aminotrans (AST/SGOT 12.0 U/L (12-37); Bilirubin, Total 0.3 mg/dL (0.1-1.0); Blood Urea Nitrogen 8.0 mg/dL (8-24); CO2, Blood 23.0 mmol/L (21-32); Calcium, Blood 9.0 mg/dL (8.5-10.1); Chloride, Blood 106.0 mmol/L (98-108); Creatinine, Blood 0.52 mg/dL (0.40-1.00); Globulin, Blood 4.0 g/dL (2.2-4.0); Glucose, Blood 71.0 mg/dL (70-99); Potassium, Blood 3.7 mmol/L (3.5-5.5); Sodium, Blood 135.0 mmol/L (136-145); Total Protein, Blood 6.6 g/dL (6.4-8.2)
[~2025-01-09] VITALS: Ht 162.6 cm; Wt 132.9 kg
[2025-01-09] VITALS (18 sets, daily range): BP systolic 108–148; BP diastolic 55–128
[2025-01-09] MEDS ORDERED: Tranexamic Acid 100 ML IV SCH ×2 (13:50→17:40)
[2025-01-09] MEDS ORDERED: Oxytocin 10 Unit / ML Vial IM PRN (13:50)
[2025-01-09] MEDS ORDERED: Carboprost Tromethamine 250 MCG/ML 1ML Amp IM PRN (13:50)
[2025-01-09] MEDS ORDERED: Ondansetron HCl 2 MG / ML 2ML Vial IV PRN ×3 (13:50→17:30)
[2025-01-09] MEDS ORDERED: OXYTOCIN/RINGER'S LACTATE 500 ML IV PRN (13:50)
[2025-01-09] MEDS ORDERED: Methylergonovine Maleate 0.2MG / ML 1ML Amp IM PRN ×2 (13:50→17:30)
[2025-01-09] MEDS ORDERED: Citric Acid/Sodium Citrate 30 ML BTL PO STA (13:54)
[2025-01-09] MEDS ORDERED: Metoclopramide HCl 5MG / ML 2ML Vial IV ONE (13:55)
[2025-01-09] MEDS ORDERED: CeFAZolin Sodium 3,000 MG in NS 100 ML IV ONE (13:55)
[2025-01-09] MEDS ORDERED: FentaNYL Citrate 50 MCG/ML 2 ML Injection IV PRN ×2 (14:15)
[2025-01-09] MEDS ORDERED: Morphine Sulfate 4 MG/1 ML Injection IV PRN ×2 (14:15)
[2025-01-09] MEDS ORDERED: Metoclopramide HCl 5MG / ML 2ML Vial IV PRN (14:15)
[2025-01-09] MEDS ORDERED: FentaNYL Citrate 50 MCG/ML 2 ML Injection ONE ×2 (14:55→16:47)
[2025-01-09] MEDS ORDERED: Oxytocin 10 Unit / ML Vial ONE (15:00)
--- NOTE | 2025-01-09 16:21 | NUR ---
01/09/25 1621 Cristy Hairston DELIVERY OF VIABLE MALE . DELIVERY AFTER 3 PULLS AND 3 POP OFFS OF KIWI VACUUM. DELIVERED 12 MIN AFTER UTERINE INCISION. CHARGE NURSE CAIO GARAY RN CALLED INTO ROOM TO ASSIST WITH NB RESUSCITATION. NURSERY NOTIFIED OF DIFFICULT DELIVERY AT 1508, PEDS REQUESTED TO COME AT 1600. CORD BLOOD SAMPLE SENT COLLECTED AND SENT WITH STAFF FOR BLOOD TYPING. CORD BLOOD SEGMENT ON ICE AND SENT WITH RT FOR CORD GASSES. NB IMMEDIATELY TRANSFERRED TO [facility] AND TRANSFERRED TO THE NURSERY. NO APGARS OR WEIGHT AVAILABLE AT THIS TIME.
[2025-01-09] MEDS ORDERED: Metoclopramide HCl 5MG / ML 2ML Vial ONE (16:24)
[2025-01-09] MEDS ORDERED: Ondansetron HCl 2 MG / ML 2ML Vial ONE (16:24)
[2025-01-09 16:33] LABS: PCO2 Cord - Arterial 89.9 mmHg (40-50); PO2 Cord - Arterial 14.1 mmHg (16-20); pH Cord - Arterial 6.97 (7.28-7.35)
[2025-01-09 16:36] LABS: PCO2 Cord - Venous 80.8 mmHg (40-50); PO2 Cord - Venous < 12.3 mmHg (28-32); pH Umbilical Cord - Venous 7.03 (7.26-7.35)
[2025-01-09] MEDS ORDERED: Ketorolac Tromethamine 30mg Vial ONE (17:01)
[2025-01-09] MEDS ORDERED: Magnesium Hydroxide Conc 10 ML UDC PO PRN (17:25)
[2025-01-09] MEDS ORDERED: OXYTOCIN/RINGER'S LACTATE 500 ML IV SCH (17:25)
[2025-01-09] MEDS ORDERED: Morphine Sulfate 10 MG/ML 1MLSYR IM PRN (17:30)
[2025-01-09] MEDS ORDERED: OxyCODONE 5 mg/Acetamin 325 mg TABLET PO PRN (17:30)
[2025-01-09] MEDS ORDERED: Ketorolac Tromethamine 30mg Vial IV SCH (18:00)
[2025-01-09] MEDS ORDERED: CeFAZolin Sodium 3,000 MG in NS 100 ML IV SCH (22:00)
[2025-01-10 00:24] VITALS: BP 125/58
[2025-01-10 03:59] VITALS: BP 120/56
[2025-01-10 06:46] LABS: BASOPHILS ABSOLUTE AUTO 0.05 K/mm3 (0.00-0.23); BASOPHILS PERCENT AUTO 0 % (0-2); EOSINOPHILS ABSOLUTE AUTO 0.18 K/mm3 (0.00-0.68); EOSINOPHILS PERCENT AUTO 2 % (0-6); Hematocrit 31.0 % (33.0-51.0); Hemoglobin 10.9 g/dL (11.5-16.0); IMMATURE GRAN ABSOLUTE AUTO 0.10 K/mm3 (0.00-0.10); IMMATURE GRAN PERCENT AUTO 1 % (0-1); LYMPHOCYTES ABSOLUTE AUTO 1.92 K/mm3 (0.84-5.20); LYMPHOCYTES PERCENT AUTO 16 % (21-46); MONOCYTES ABSOLUTE AUTO 1.01 K/mm3 (0.16-1.47); MONOCYTES PERCENT AUTO 8 % (4-13); Mean Corpuscular HGB Conc 35.2 g/dL (31.5-36.5); Mean Corpuscular Volume 82 fL (80-100); NEUTROPHILS ABSOLUTE AUTO 9.12 K/mm3 (1.96-9.15); NEUTROPHILS PERCENT AUTO 74 % (41-73); NRBC ABSOLUTE 0.00 K/mm3 (0.00-0.02); NRBC Auto 0.0 /100 WBC (0.0-0.2); Platelet Count 186 K/mm3 (150-400); RDW Coefficient Variation 14.1 % (11.7-14.2); RDW Standard Deviation 41.6 fL (35.1-46.3)
--- NOTE | 2025-01-10 06:51 | NUR ---
davis bagg assesment at 0400. urine very dark. pt reports normal for her. only 200 in bag equating 25 ml/hr since last bag drain. 500 bolus started. finished at 0600. this rn left davis until output improves
[2025-01-10 07:42] VITALS: BP 125/63
[2025-01-10] MEDS ORDERED: Prenatal Vit/FE Fumarate/FA 1 Tab PO SCH (09:00)
[2025-01-10 09:07] LABS: Alanine Aminotransfer (ALT/SGP 9.0 U/L (12-78); Albumin, Blood 2.3 g/dL (3.4-5.0); Albumin/Globulin Ratio 0.6 (0.8-1.8); Anion Gap 11.0 mmol/L (3-11); Aspartate Aminotrans (AST/SGOT 14.0 U/L (12-37); Bilirubin, Total 0.3 mg/dL (0.1-1.0); Blood Urea Nitrogen 11.0 mg/dL (8-24); CO2, Blood 22.0 mmol/L (21-32); Calcium, Blood 8.9 mg/dL (8.5-10.1); Chloride, Blood 108.0 mmol/L (98-108); Creatinine, Blood 0.63 mg/dL (0.40-1.00); Globulin, Blood 3.8 g/dL (2.2-4.0); Glucose, Blood 141.0 mg/dL (70-99); Potassium, Blood 3.7 mmol/L (3.5-5.5); Sodium, Blood 137.0 mmol/L (136-145); Total Protein, Blood 6.1 g/dL (6.4-8.2)
[2025-01-10] MEDS ORDERED: Ketorolac Tromethamine 30mg Vial IV ONE (12:55)
[2025-01-10 14:00] LABS: Source, Urine Foley catheter
[2025-01-10 14:38] LABS: Bilirubin, Urine Neg (Neg); Color, Urine Yellow (P-Yellow); Glucose Qualitative, Urine Neg (Neg); Ketones, Urine Neg (Neg); Leukocyte Esterase, Urine 3+ (Neg); Protein, Urine 2+ (Neg); Specific Gravity, Urine 1.010 (1.003-1.022); Urobilinogen, Urine NORM (Normal)
[2025-01-10 15:29] LABS: Red Blood Cells, Urine TNTC /hpf (0-2); White Blood Cells, Urine TNTC /hpf (0-5)
[2025-01-10 16:41] VITALS: BP 148/73
[2025-01-10 19:54] VITALS: BP 135/64
--- NOTE | 2025-01-10 22:01 | NUR ---
Assumed care at change of shift, patient reports pain adequately controlled at this time. Patient reports to bring pump when he visits as patient wants to pump milk to feed . Patient is excited to have in room tonight, no support person staying. Patient reports came, started an arguement with her and then left. Assisted patient with hospital pump use. Patient pumped 13ml of clostrum and fed to via bottle. Resting in bed at this time, planning to get a couple hours of sleep prior to next feed. No urine out this shift.
[2025-01-11 01:00] VITALS: BP 144/66
[2025-01-11 04:09] VITALS: BP 129/77
[2025-01-11 09:11] VITALS: BP 140/64
[2025-01-11] MEDS ORDERED: FLU VACC TS2025-26(6MOS UP)/PF 45 MCG/0.5 ML SYRINGE IM SCH (09:35)
[2025-01-11 12:39] VITALS: BP 122/62
[2025-01-11 14:19] VITALS: BP 143/70
== END 2025-01-11 14:45 | disposition home or self-care (01) | DRG 788 ==
LOC: BC 13:03
PROVIDERS: ADMIT Obstetrics & Gynecology
PROC: 4A033R1 Measurement of Arterial Saturation, Peripheral, Percutaneous Approach (ICD-10-PCS; 2025-01-09)
PROC: 10D00Z1 Extraction of Products of Conception, Low, Open Approach (ICD-10-PCS; principal; 2025-01-09 15:00)
DX: O34.211 Maternal care for low transverse scar from previous cesarean delivery (principal); Z37.0 Single live birth; O24.420 Gestational diabetes mellitus in childbirth, diet controlled; O99.344 Other mental disorders complicating childbirth; F32.A Depression, unspecified; R30.0 Dysuria; R03.0 Elevated blood-pressure reading, without diagnosis of hypertension; O90.89 Other complications of the puerperium, not elsewhere classified; Z3A.39 39 weeks gestation of pregnancy; Z88.8 Allergy status to other drugs, medicaments and biological substances; Z88.2 Allergy status to sulfonamides; Z87.442 Personal history of urinary calculi
CPT/HCPCS: 36415; 80053; 81001; 82803; 82947; 85025; 86850; 86900; 86901; 86923; A9270; J0690; J1885; J2270; J2405; J2590; J2765; J3010; J7120

== ENCOUNTER 2025-01-15 17:22 | Inpatient (IN) | payer OTHER ==
[~2025-01-15] VITALS: Ht 162.6 cm; Wt 129.3 kg
[2025-01-15] MEDS ORDERED: Magnesium Sulf 2 GM/Water 50ML 50 ML IV ONE ×3 (17:35→20:19)
[2025-01-15] MEDS ORDERED: Labetalol HCL 5 MG/ML 4ML Injection (Single Dose) IV ONE ×3 (17:40→20:35)
[2025-01-15 18:06] LABS: BASOPHILS ABSOLUTE AUTO 0.06 K/mm3 (0.00-0.23); BASOPHILS PERCENT AUTO 1 % (0-2); EOSINOPHILS ABSOLUTE AUTO 0.37 K/mm3 (0.00-0.68); EOSINOPHILS PERCENT AUTO 4 % (0-6); Hematocrit 32.5 % (33.0-51.0); Hemoglobin 11.2 g/dL (11.5-16.0); IMMATURE GRAN ABSOLUTE AUTO 0.18 K/mm3 (0.00-0.10); IMMATURE GRAN PERCENT AUTO 2 % (0-1); LYMPHOCYTES ABSOLUTE AUTO 2.35 K/mm3 (0.84-5.20); LYMPHOCYTES PERCENT AUTO 25 % (21-46); MONOCYTES ABSOLUTE AUTO 0.70 K/mm3 (0.16-1.47); MONOCYTES PERCENT AUTO 8 % (4-13); Mean Corpuscular HGB Conc 34.5 g/dL (31.5-36.5); Mean Corpuscular Volume 83 fL (80-100); NEUTROPHILS ABSOLUTE AUTO 5.71 K/mm3 (1.96-9.15); NEUTROPHILS PERCENT AUTO 61 % (41-73); NRBC ABSOLUTE 0.02 K/mm3 (0.00-0.02); NRBC Auto 0.2 /100 WBC (0.0-0.2); Platelet Count 289 K/mm3 (150-400); RDW Coefficient Variation 13.8 % (11.7-14.2); RDW Standard Deviation 41.7 fL (35.1-46.3)
[2025-01-15 18:15] LABS: Source, Urine Clean Catch
[2025-01-15 18:22] LABS: Bilirubin, Urine Neg (Neg); Color, Urine Brown (P-Yellow); Glucose Qualitative, Urine Neg (Neg); Ketones, Urine Neg (Neg); Leukocyte Esterase, Urine 3+ (Neg); Protein, Urine 3+ (Neg); Specific Gravity, Urine 1.015 (1.003-1.022); Urobilinogen, Urine NORM (Normal)
[2025-01-15 18:28] LABS: Alanine Aminotransfer (ALT/SGP 17.0 U/L (12-78); Albumin, Blood 2.9 g/dL (3.4-5.0); Albumin/Globulin Ratio 0.7 (0.8-1.8); Anion Gap 10.0 mmol/L (3-11); Aspartate Aminotrans (AST/SGOT 18.0 U/L (12-37); Bilirubin, Total 0.3 mg/dL (0.1-1.0); Blood Urea Nitrogen 19.0 mg/dL (8-24); CO2, Blood 26.0 mmol/L (21-32); Calcium, Blood 9.0 mg/dL (8.5-10.1); Chloride, Blood 106.0 mmol/L (98-108); Creatinine, Blood 0.77 mg/dL (0.40-1.00); Globulin, Blood 4.0 g/dL (2.2-4.0); Glucose, Blood 90.0 mg/dL (70-99); Lactate Dehydrogenase (Ld),Bld 261.0 U/L (100-240); Magnesium, Blood 1.7 mg/dL (1.6-2.4); Phosphorus, Blood 4.6 mg/dL (2.5-4.9); Potassium, Blood 3.7 mmol/L (3.5-5.5); Sodium, Blood 138.0 mmol/L (136-145); Total Protein, Blood 6.9 g/dL (6.4-8.2)
[2025-01-15 18:32] LABS: Red Blood Cells, Urine TNTC /hpf (0-2); White Blood Cells, Urine 50-100 /hpf (0-5)
--- NOTE | 2025-01-15 20:27 | NUR ---
DR BAKER IS CALLED AFTER PT ARRIVES TO [facility] AND UPDATED WITH V/S, TX SO FAR. ORDERS TO COMPLETE MAG BOLUS AND INITIATE THE SEVERE HTN PROTOCOL ARE RECEIVED.
[2025-01-15] MEDS ORDERED: Magnesium Sulf 2 GM/Water 50ML 50 ML IV SCH (20:35)
[2025-01-15] MEDS ORDERED: Labetalol HCL 5 MG/ML 4ML Injection (Single Dose) IV PRN ×3 (20:35→21:55)
[2025-01-15 20:39] VITALS: BP 141/71
[2025-01-15] MEDS ORDERED: Ondansetron HCl 2 MG / ML 2ML Vial IV PRN (20:45)
[2025-01-15] MEDS ORDERED: SERTRALINE HCL200 MG PO (21:03)
[2025-01-15] MEDS ORDERED: LABE100 PO (21:04)
[2025-01-15] MEDS ORDERED: IBUP800 PO ×2 (21:05→21:23)
[2025-01-15] MEDS ORDERED: Percocet 5-3251 EACH PO (21:05)
[2025-01-15 21:08] VITALS: BP 132/58
[2025-01-15] MEDS ORDERED: FURO20 PO (21:16)
[2025-01-15] MEDS ORDERED: FURO40 PO (21:16)
[2025-01-15] MEDS ORDERED: DOC250 PO (21:19)
[2025-01-15] MEDS ORDERED: Percocet 5-3251 EACH ×2 (21:20)
[2025-01-15 21:23] LABS: Fibrinogen 469.0 mg/dL (170-430); Prothrombin Time Results 10.3 Sec (9.7-11.5)
[2025-01-15 22:08] VITALS: BP 145/68
[2025-01-15 23:08] VITALS: BP 134/67
[2025-01-15] MEDS ORDERED: OxyCODONE 5 mg/Acetamin 325 mg TABLET PO PRN (23:30)
[2025-01-16] VITALS (15 sets, daily range): BP systolic 124–164; BP diastolic 65–81
== END 2025-01-16 19:00 | disposition home or self-care (01) | DRG 776 ==
LOC: ER 17:22 → BC 19:20
PROVIDERS: Physician Assistant; ADMIT Obstetrics & Gynecology
DX: O14.95 Unspecified pre-eclampsia, complicating the puerperium (principal); O90.0 Disruption of cesarean delivery wound; Z39.2 Encounter for routine postpartum follow-up
CPT/HCPCS: 36415; 80053; 81001; 83615; 83735; 84100; 85025; 85384; 85610; 85730; 87086; 93005; 93010; 96365; 96375; 99211; 99284-25; A9270; J3475; J7120